=== PATIENT | female | born 1985 | race Hispanic/Latino ===

== ENCOUNTER 2017-12-22 20:45 | Emergency (ER) | payer OTHER ==
[2017-12-22 20:52] VITALS: O2SAT 96
--- NOTE | 2017-12-22 21:00 | ED PDOC ---
HPI: Allergic Reaction Time Seen by Provider: 12/22/17 20:55 Chief Complaint (Nursing): Allergic Reaction Chief Complaint (Provider): allergic reaction History Per: Patient History/Exam Limitations: no limitations Onset/Duration Of Symptoms: Mins (30) Current Symptoms Are (Timing): Still Present Possible Cause: Unknown Associated Symptoms: Skin Rash, Swelling, Dyspnea Home/EMS Treatment: Benadryl (3 tablets) Additional Complaint(s): 32 y/o female brought in by EMS for evaluation of allergic reaction x 30 minutes. Patient reports diffuse pruritic rash, lip swelling, and difficulty breathing. Patient states she took 3 Benadryl and called 911 because she started to feel as if she was going to pass out. Denies difficulty speaking/ swallowing, chest pain, palpitations, abdominal pain, vomiting/diarrhea, known allergen. Patient states she has had similar episode in past but did not require ED visit. Past Medical History Reviewed: Historical Data, Nursing Documentation, Vital Signs Vital Signs: Last Vital Signs Temp 97.9 F 12/22/17 20:50 Pulse 129 H 12/22/17 20:50 Resp 18 12/22/17 20:50 BP 101/55 L 12/22/17 20:50 Pulse Ox 96 12/22/17 20:50 - Medical History PMH: No Chronic Diseases - Surgical History Surgical History: No Surg Hx - Family History Family History: States: No Known Family Hx - Home Medications Home Medications: Ambulatory Orders Medication Instructions Recorded Epinephrine [Epipen] 0.3 mg IJ PRN PRN #1 auto.injct 12/22/17 Famotidine [Pepcid] 20 mg PO BID #8 tab 12/22/17 predniSONE [Prednisone] 60 mg PO DAILY #12 tab 12/22/17 - Allergies Allergies/Adverse Reactions: Allergies Allergy/AdvReac Type Severity Reaction Status Date / Time No Known Allergies Allergy Verified 12/22/17 20:52 Review of Systems ROS Statement: Except As Marked, All Systems Reviewed And Found Negative Respiratory: Positive for: Shortness of Breath Skin: Positive for: Rash Physical Exam - Reviewed Nursing Documentation Reviewed: Yes Vital Signs Reviewed: Yes - Physical Exam Appears: Positive for: Well, Non-toxic, Uncomfortable (itching) Head Exam: Positive for: ATRAUMATIC, NORMAL INSPECTION, NORMOCEPHALIC Skin: Positive for: Normal Color, Rash (diffuse erythematous rash. ) Eye Exam: Positive for: Normal appearance ENT: Positive for: Normal ENT Inspection, Other (airway patent. Upper lip edema) Cardiovascular/Chest: Positive for: Regular Rate, Rhythm Respiratory: Positive for: Normal Breath Sounds Gastrointestinal/Abdominal: Positive for: Normal Exam Back: Positive for: Normal Inspection Extremity: Positive for: Normal ROM Neurologic/Psych: Positive for: Alert, Oriented - ECG O2 Sat by Pulse Oximetry: 96 - Progress ED Course And Treament: IV solumedrol, IV pepcid 22:40 On re-eval, rash resolved. Lip swelling improved. Patient states she is feeling better and would like to be discharged Patient educated on findings, discharged with rx Prednisone, Pepcid, epi-pen Advised to continue Benadryl as directed. 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
[2017-12-22] MEDS ORDERED: DiphenhydrAMINE 50 mg/ml Inj ONE (21:02)
[2017-12-22] MEDS ORDERED: Famotidine 20mg/50ml 20 MG/50 ML BAG IVPB ONE (21:03)
[2017-12-22 22:54] VITALS: BP 131/74; PULSE 73; RESP 20; TEMP 98.8
== END 2017-12-22 23:11 | disposition home or self-care (01) ==
LOC: H.ER 20:45
DX: T78.40XA Allergy, unspecified, initial encounter (principal)
CPT/HCPCS: 81025; 96374; 99284; J2405; J2930

== ENCOUNTER 2018-02-13 11:10 | Emergency (ER) | payer OTHER ==
[2018-02-13] MEDS ORDERED: DiphenhydrAMINE 50 mg/ml Inj ONE (11:14)
[2018-02-13] MEDS ORDERED: Albuterol-Ipratrop 3 mg / 0.5 (3 ml) UD ONE (11:15)
[2018-02-13] MEDS ORDERED: DiphenhydrAMINE 50 mg/ml Inj IVP STA (11:38)
[2018-02-13] MEDS ORDERED: Sodium Chloride 0.9% 1,000 ML IV STA (11:39)
[2018-02-13 11:43] VITALS: O2SAT 95
[2018-02-13] MEDS ORDERED: EPINEPHrine 1 mg/ml (1:1000) Inj SC STA (11:43)
--- NOTE | 2018-02-13 11:47 | ED PDOC ---
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 Past Medical History Reviewed: Nursing Documentation, Vital Signs Vital Signs: Last Vital Signs Temp 98.9 F 02/13/18 11:22 Pulse 123 H 02/13/18 11:38 Resp 28 H 02/13/18 11:38 BP 123/97 H 02/13/18 11:38 Pulse Ox 95 02/13/18 11:38 - Medical History PMH: No Chronic Diseases - Family History Family History: States: Unknown Family Hx - Social History Current smoker - smoking cessation education provided: No - Home Medications Home Medications: Ambulatory Orders Medication Instructions Recorded Epinephrine [Epipen] 0.3 mg IJ PRN PRN #1 auto.injct 12/22/17 Famotidine [Pepcid] 20 mg PO BID #8 tab 12/22/17 predniSONE [Prednisone] 60 mg PO DAILY #12 tab 12/22/17 DiphenhydrAMINE [Benadryl] 50 mg PO Q6H 3 Days #20 cap 02/13/18 Epinephrine HCl [Epipen 0.3 mg MR DAILY PRN #1 ml 02/13/18 Auto-Injector] Famotidine [Pepcid] 20 mg PO BID 3 Days #20 tab 02/13/18 Prednisone 50 mg PO DAILY #4 tab 02/13/18 - Allergies Allergies/Adverse Reactions: Allergies Allergy/AdvReac Type Severity Reaction Status Date / Time No Known Allergies Allergy Verified 02/13/18 11:28 Review of Systems ROS Statement: Except As Marked, All Systems Reviewed And Found Negative Respiratory: Positive for: Shortness of Breath Skin: Positive for: Rash Physical Exam - Reviewed Nursing Documentation Reviewed: Yes Vital Signs Reviewed: Yes - Physical Exam Appears: Positive for: In Acute Distress Skin: Positive for: Normal Color, Warm, Dry Eye Exam: Positive for: Normal appearance, EOMI, PERRL ENT: Positive for: Pharynx Is (Clear, no drooling). Negative for: Pharyngeal Erythema, Tonsillar Swelling Cardiovascular/Chest: Positive for: Tachycardia. Negative for: Irregularly Irregular Respiratory: Positive for: Decreased Breath Sounds, Respiratory Distress (Mild) . Negative for: Accessory Muscle Use Extremity: Positive for: Normal ROM Neurologic/Psych: Positive for: Alert, Oriented - Laboratory Results Result Diagrams: 02/13/18 11:40 02/13/18 11:40 - ECG O2 Sat by Pulse Oximetry: 95 Pulse Ox Interpretation: Normal - Progress ED Course And Treament: Pt seen immediately on presentation, IV line established, administered Duonebs, Benadryl 25 mg IV, Solumedrol 125 mg IV, Pepcid 20 mg IV and IVF. - Critical Care Total Time (In Min): 45 Disposition - Clinical Impression Clinical Impression: Acute allergic reaction - Disposition Referrals: iNlesh Cassidy MD [Staff Provider] - Disposition: Routine/Home Disposition Time: 14:10 Condition: IMPROVED Additional Instructions: FOLLOW-UP WITH PMD WITHIN 2 DAYS FOR REEVALUATION WITHOUT FAIL. Prescriptions: DiphenhydrAMINE [Benadryl] 50 mg PO Q6H 3 Days #20 cap Epinephrine HCl [Epipen Auto-Injector] 0.3 mg MR DAILY PRN #1 ml PRN Reason: Allergy Symptoms Famotidine [Pepcid] 20 mg PO BID 3 Days #20 tab Prednisone 50 mg PO DAILY #4 tab Instructions: Food Allergy Forms: [facility] ([place]) Medical Decision Making Medical Decision Makin:45 P 123, 96% 4L, 129/94 Pt reports continued SOB, Epi 0.3 mg SC ordered, pt refusing at this time. 14:10 Symptoms completely resolved, wants to be discharged. 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
[2018-02-13 11:57] LABS: ALB/GLOB RATIO 1.3 (1.0-2.1); ALBUMIN 4.3 g/dL (3.5-5.0); ALT/SGPT 29 U/L (9-52); AST/SGOT 25 U/L (14-36); BASO % 0.2 % (0.0-2.0); BLOOD UREA NITROGEN 12 mg/dl (7-17); CALCIUM 8.9 mg/dL (8.4-10.2); EOS # 0.1 K/uL (0.0-0.7); EOS % 1.1 % (0.0-4.0); GFR AFRICAN-AMERICAN > 60; GFR NON-AFRICAN AMERICAN > 60; HEMOGLOBIN 14.9 g/dL (12.0-16.0); LYMPH # 5.2 K/uL (1.0-4.3); LYMPH % 40.5 % (20.0-40.0); MEAN CELL VOLUME 88.5 fl (81.0-99.0); MEAN CORPUSCULAR HEMOGLOBIN 29.8 pg (27.0-31.0); MEAN CORPUSCULAR HGB CONC 33.7 g/dL (33.0-37.0); MEAN PLATELET VOLUME 10.8 fl (7.2-11.7); MONO # 0.7 K/uL (0.0-0.8); MONO % 5.2 % (0.0-10.0); NEUT # 6.7 K/uL (1.8-7.0); RBC 4.99 Mil/uL (3.80-5.20); RED CELL DISTRIBUTION WIDTH 13.1 % (11.5-14.5); WHITE BLOOD COUNT 12.7 K/uL (4.8-10.8)
[2018-02-13 14:30] VITALS: BP 132/74; PULSE 96; RESP 20; TEMP 98.3
== END 2018-02-13 14:22 | disposition home or self-care (01) ==
LOC: H.ER 11:10
DX: T78.40XA Allergy, unspecified, initial encounter (principal)
CPT/HCPCS: 80053; 81025; 84702; 85025; 96374; 96375; 99285; J1200; J2405; J2930; J7030